=== PATIENT | female | born 1970 | race Caucasian/White ===

== ENCOUNTER 2020-10-22 10:07 | Inpatient (IN) ==
[2020-10-17 13:24] LABS: Appearance,Urine CLEAR (Clear); Bilirubin,Urine Negative (Negative); Color,Urine YELLOW; Culture Indicated,Urine No; Glucose,Urine (UA) Negative (Negative); Ketones,Urine Negative (Negative); Leukocyte Esterase,Urine Negative /ug (Negative); Nitrate,Urine Negative (Negative); Protein,Urine Negative (Negative); Specific Gravity,Urine 1.021 (1.000-1.035); Urine Blood Negative (Negative); Urobilinogen,Urine Negative
[2020-10-17 13:44] LABS: Basophils # (Auto) 0.06 K/mcL (0.00-0.20); Basophils % (Auto) 0.8 % (0.0-2.0); Eosinophils # (Auto) 0.27 K/mcL (0.00-0.70); Eosinophils % (Auto) 3.7 % (0.0-7.0); Hematocrit 40.9 % (36.0-48.0); Hemoglobin 12.8 g/dL (12.0-15.0); Lymphocytes # (Auto) 2.35 K/mcL (1.50-4.80); Lymphocytes % (Auto) 31.9 % (15.0-49.0); Mean Cell Volume 99.3 fL (80.0-100.0); Mean Corpuscular HGB Conc 31.3 g/dL (31.0-36.0); Mean Platelet Volume 9.7 fL (7.4-10.4); Monocytes # (Auto) 0.56 K/mcL (0.10-0.90); Monocytes % (Auto) 7.6 % (1.0-12.0); Platelet Count 171 K/mcL (140-440); RBC 4.12 M/mcL (4.00-5.20); Red Cell Distribution Width 15.8 % (11.5-14.5); WBC 7.4 K/mcL (4.5-11.0)
[2020-10-17 13:59] LABS: Blood Urea Nitrogen 22 mg/dL (6-20); Calcium 10.8 mg/dL (8.6-10.4); Carbon Dioxide 28 mmol/L (22-30); Chloride 108 mmol/L (96-108); Glomerular Filtration Rate 65; Glucose 108 mg/dL (70-105)
[2020-10-17 14:02] LABS: Estimated Average Glucose(eAG) 111 mg/dL; Hemoglobin A1C 5.5 % Hgb (4.0-6.0)
[2020-10-17 14:20] LABS: INR 0.9 (0.9-1.1); Partial Thromboplastin Time 28.7 sec (20.0-37.0); Prothrombin Time 12.8 sec (11.9-14.5)
[~2020-10-22 10:07] MED LIST: 0.9 % SODIUM CHLORIDE 9 ML, KETOROLAC 30 MG, ROPIVACAINE HCL/PF 49.5 ML, EPINEPHrine 0.... IJ SCH; ACETAMINOPHEN 500 MG TABLET PO SCH; CELECOXIB 200 MG CAPSULE PO SCH; PREGABALIN 75 MG CAPSULE PO SCH; ceFAZolin 2 GM in DEXTROSE 5% IN WATER 50 ML IV SCH; oxyCODONE 10 MG TAB.ER.12H PO SCH
[2020-10-22] MEDS ORDERED: SCOPOLAMINE 1 PATCH PATCH TOPICAL PRN (11:00)
[2020-10-22] MEDS: IPRATROPIUM/ALBUTEROL 3 ML AMPUL.NEB NEB PRN ×2 (15:05→15:13)
--- NOTE | 2020-10-22 15:26 | Discharge Plan ---
Discharge Instructions - TKA Patient Instructions Total Knee Protocol: For Total Knee: Start ROM MARCELINA with stationary bike or rocking chair. Work on gaining full extension of knee. Posterior dislocation precautions provided. Hip abductor strengthening and gait training instructions provided. Apply Cryocuff as instructed. Discharge Plan Patient/Caregiver Discharge Instructions Activity: ambulate only with your walker and as per physical therapy Diet: Regular Diet Prescriptions: New hydrocodone-acetaminophen 10-325 mg Tablet 1 - 2 tab PO Q4H PRN (Reason: Pain) Qty: 75 RF: 0 docusate sodium 100 mg capsule 100 mg PO BID Qty: 60 RF: 0 No Action multivitamin Tablet 1 tab PO QDAY RF: 0 metformin 500 mg Tablet 500 mg PO BIDCC RF: 0 atorvastatin [Lipitor] 20 mg Tablet 20 mg PO QHS RF: 0 cetirizine 10 mg Tablet 10 mg PO QDAY RF: 0 sertraline 100 mg Tablet 200 mg PO QDAY RF: 0 milk thistle 150 mg Capsule 300 mg PO QDAY RF: 0 metoclopramide HCl 5 mg Tablet 5 mg PO TIDP PRN (Reason: Nausea) RF: 0 losartan 25 mg Tablet 25 mg PO QDAY RF: 0 hydrochlorothiazide 12.5 mg Capsule 12.5 mg PO QAM RF: 0 omeprazole 20 mg Capsule,Delayed Release(Dr/Ec) 20 mg PO BIDAC RF: 0 enoxaparin [Lovenox] 150 mg/mL Syringe 150 mg SUBCUT DAILY RF: 0 Lactobacillus acidophilus Capsule 10 mg PO QPMCC RF: 0 albuterol sulfate [Ventolin HFA] 90 mcg/actuation Hfa Aerosol Inhaler 1 - 2 puff INHALATION Q4-6HP PRN (Reason: SOB) RF: 0 ketoconazole 2 % Cream 1 applic TOPICAL QDAY RF: 0 fluticasone propionate [Flonase Allergy Relief] 50 mcg/actuation [place],Suspension 2 spray INTRANASAL QDAY RF: 0 methocarbamol 500 mg Tablet 500 - 1,000 mg PO Q6HP PRN (Reason: MUSCLE SPASMS) RF: 0 acetaminophen 650 mg Tablet Extended Release 1,300 mg PO BID RF: 0 hydroxyzine HCl 25 mg Tablet 12.5 - 25 mg PO Q8HP PRN (Reason: Anxiety) RF: 0 ergocalciferol (vitamin D2) [Vitamin D2] 1,250 mcg (50,000 unit) Capsule 1,250 mcg PO SA@0900 RF: 0 pregabalin [Lyrica] 225 mg Capsule 225 mg PO BID RF: 0 Other Ambulatory Orders: CPM Discharge Order (ONCE) Location: None Selected Ordered By: Manuel Castle Physical Therapy DC - TKA (Routine) Location: None Selected Ordered By: Manuel Castle Toilet Riser Discharge Order (ONCE) Location: None Selected Ordered By: Manuel Castle Walker (ONCE) Location: None Selected Ordered By: Manuel Castle Follow Up Plan Follow up with: Manuel Castle PA-C [Physician Gasket Supervisor] - Patient Disposition: Home, Self-Care Prognosis: Good Rehab Potential: Good I certify that the patient requires SNF services: No Overall status at discharge: patient is progressing back to baseline Discharge Orders: Discharge Order (Routine); Ordered 10/23/20 Ordered By: Manuel Castle
[2020-10-22] MEDS ORDERED: SUCCINYLCHOLINE 20 MG/ML ML IV ONE (15:47)
[2020-10-22] MEDS ORDERED: PHENYLEPHRINE 10 MG/ML VIAL ONE (15:47)
[2020-10-22] MEDS ORDERED: ROCURONIUM 10 MG/ML ML IV ONE (15:47)
[2020-10-22] MEDS ORDERED: LIDOCAINE HCL/PF 100 MG/5 ML SYRINGE IV ONE (15:47)
[2020-10-22] MEDS ORDERED: ePHEDrine 50 MG/ML AMPUL IV ONE (15:47)
[2020-10-22] MEDS ORDERED: MIDAZOLAM 5 MG/5 ML VIAL ONE (15:47)
[2020-10-22] MEDS ORDERED: PROPOFOL 200 MG/20 ML VIAL IV ONE (15:47)
[2020-10-22] MEDS ORDERED: KETAMINE 100 MG/ML ML ONE (15:47)
[2020-10-22] MEDS ORDERED: DEXAMETHASONE 10 MG/ML VIAL ONE (15:47)
[2020-10-22] MEDS ORDERED: ONDANSETRON 4 MG/2 ML VIAL ONE (15:47)
[2020-10-22] MEDS ORDERED: GENTAMICIN SULFATE 800 MG/20 ML VIAL IR ONE (16:20)
[2020-10-22] MEDS ORDERED: ATROPINE SULFATE 0.4 MG/ML VIAL IV PRN (16:38)
[2020-10-22] MEDS ORDERED: MEPERIDINE 25 MG/ML SYRINGE IV PRN (16:38)
[2020-10-22] MEDS ORDERED: FLUMAZENIL 0.1 MG/ML ML IV PRN (16:38)
[2020-10-22] MEDS ORDERED: diphenhydrAMINE 50 MG/ML VIAL IV PRN (16:38)
[2020-10-22] MEDS ORDERED: METOPROLOL TARTRATE 5 MG/5 ML VIAL IV PRN (16:38)
[2020-10-22] MEDS ORDERED: ePHEDrine 50 MG/ML AMPUL IV PRN (16:38)
[2020-10-22] MEDS ORDERED: PROMETHAZINE 25 MG/ML VIAL IV PRN (16:38)
[2020-10-22] MEDS ORDERED: PROMETHAZINE 25 MG/ML VIAL IM PRN (16:38)
[2020-10-22] MEDS ORDERED: ONDANSETRON 4 MG/2 ML VIAL IV PRN ×2 (16:38→16:59)
[2020-10-22] MEDS ORDERED: MEPERIDINE 50 MG/ML INJECTION IM PRN (16:38)
[2020-10-22] MEDS ORDERED: IPRATROPIUM/ALBUTEROL 3 ML AMPUL.NEB NEB PRN (16:38)
[2020-10-22] MEDS ORDERED: NALOXONE HCL 0.4 MG/ML VIAL IV PRN (16:38)
[2020-10-22] MEDS ORDERED: fentaNYL 100 MCG/2 ML VIAL IV PRN (16:38)
[2020-10-22] MEDS ORDERED: METHOCARBAMOL 1,000 MG/10 ML VIAL IV PRN (16:38)
[2020-10-22] MEDS ORDERED: HYDROmorphone 0.5 MG/0.5 ML SYRINGE IV PRN (16:38)
[2020-10-22] MEDS ORDERED: LACTATED RINGERS 1,000 ML IV SCH (16:45)
[2020-10-22] MEDS ORDERED: BISACODYL 10 MG SUPP.RECT PR PRN (16:59)
[2020-10-22] MEDS ORDERED: TRANEXAMIC ACID 1,000 MG/10 ML VIAL IV SCH (16:59)
[2020-10-22] MEDS ORDERED: MAGNESIUM HYDROXIDE 30 ML ORAL.SUSP PO PRN (16:59)
[2020-10-22] MEDS ORDERED: ACETAMINOPHEN 325 MG TABLET PO PRN (16:59)
[2020-10-22] MEDS ORDERED: POLYETHYLENE GLYCOL 3350 17 GM PACKET PO PRN (16:59)
[2020-10-22] MEDS ORDERED: FLEETS ADULT ENEMA PR PRN (16:59)
--- NOTE | 2020-10-22 16:59 | Brief Operative Note ---
Brief Operative Note Date of procedure: 10/22/20 Pre-op diagnosis: left knee pcl rupture and prepatellar hematoma and maltracking Post-op diagnosis: same Procedure: left knee revision 2 components and debridement prepatellar bursa Grafts/Implants: Yes Anesthesia: GETA Complications: none Surgeon: Wai Barry Astrochemist: Manuel Castle Estimated blood loss (cc): 20 Tourniquet Time (Minutes): 32 Specimens Removed/Pathology: other Condition: stable Disposition: PACU
[2020-10-22] MEDS ORDERED: LACTOBACILLUS 1 CAPSULE PO SCH (17:30)
--- NOTE | 2020-10-22 17:46 | XRay Report ---
CLINICAL INFORMATION: Post-Op Total Knee COMPARISON: None. FINDINGS: Total knee prostheses revision is anatomically aligned. No osseous abnormality. Soft tissue swelling gas seen as expected IMPRESSION: Total knee prostheses revision is anatomically aligned. Interpreted and Authenticated by: Aleksey Mathews 10/22/20
[2020-10-22] MEDS: 0.45 % SODIUM CHLORIDE 1,000 ML IV SCH (18:00)
[2020-10-22] MEDS: KETOROLAC 15 MG/ML VIAL IV SCH (18:18)
[2020-10-22] MEDS ORDERED: OMEPRAZOLE 20 MG CAPSULE PO SCH (18:48)
[2020-10-22] MEDS: PREGABALIN 75 MG CAPSULE PO SCH ×2 (18:57→20:28)
[2020-10-22] MEDS: metFORMIN 500 MG TABLET PO SCH (18:57)
[2020-10-22] MEDS ORDERED: OMEPRAZOLE 20 MG CAPSULE PO ONE (19:00)
[2020-10-22] MEDS: BENZOCAINE/MENTHOL 1 LOZENGE PO PRN ×2 (19:18→22:49)
[2020-10-22] MEDS: HYDROcodone/APAP 10/325MG TABLET PO PRN ×2 (19:20→20:20)
[2020-10-22] MEDS: DOCUSATE SODIUM 100 MG CAPSULE PO SCH (20:27)
[2020-10-22] MEDS: METHOCARBAMOL 500 MG TABLET PO PRN (20:27)
[2020-10-22] MEDS: ASPIRIN 325 MG ENTERIC COATED TABLET PO SCH (20:27)
[2020-10-22] MEDS ORDERED: ACETAMINOPHEN 1300 MG PO SCH (21:00)
[2020-10-22] MEDS ORDERED: ATORVASTATIN 20 MG TABLET PO SCH (21:00)
[2020-10-22] MEDS ORDERED: TEMAZEPAM 15 MG CAPSULE PO PRN (21:00)
[2020-10-22] MEDS ORDERED: SENNOSIDES 1 TABLET PO SCH (21:00)
[2020-10-22] MEDS: 0.9 % SODIUM CHLORIDE 10 ML SYRINGE IV SCH (22:24)
[2020-10-22] MEDS: HYDROmorphone 1 MG/ML SYRINGE IV PRN (22:29)
[2020-10-22] MEDS: ceFAZolin 1 GM VIAL IV SCH (22:48)
[2020-10-23] MEDS: KETOROLAC 15 MG/ML VIAL IV SCH ×2 (00:20→05:37)
[2020-10-23] MEDS: HYDROcodone/APAP 10/325MG TABLET PO PRN ×3 (00:21→09:26)
[2020-10-23] MEDS: ALBUTEROL SULFATE 200 PUFF INHALER INH PRN ×2 (00:35→04:49)
[2020-10-23] MEDS: HYDROmorphone 1 MG/ML SYRINGE IV PRN (01:31)
[2020-10-23] MEDS: METHOCARBAMOL 500 MG TABLET PO PRN (02:19)
[2020-10-23] MEDS: 0.45 % SODIUM CHLORIDE 1,000 ML IV SCH (04:20)
[2020-10-23] MEDS: 0.9 % SODIUM CHLORIDE 10 ML SYRINGE IV SCH (05:24)
[2020-10-23] MEDS: ceFAZolin 1 GM VIAL IV SCH (07:05)
[2020-10-23] MEDS ORDERED: OMEPRAZOLE 20 MG CAPSULE PO SCH (07:30)
--- NOTE | 2020-10-23 07:36 | Orthopedic Progress Note ---
SUBJECTIVE Subjective Patient information: Note initiated : 10/23/20 at 7:35 am Service Date, if different from initiated Date: [] Patient: Gwen Herrera 49 y/o F admitted on 10/22/20 for Left Total Knee Revision-Poly Liner Exchange,. Chief Complaint: []Pt is stable this morning on post operative day without any significant concerns or complaints. Patients vital signs have remained stable. Patients dressing is dry and is grossly intact from a neurovascular and motor standpoint. Patients 10 point ROS is otherwise negative. Constitutional Vitals: Vital Signs Temp Pulse Resp BP Pulse Ox 97.9 F 74 14 110/69 93 10/23/20 04:08 10/23/20 04:08 10/23/20 04:08 10/23/20 04:08 10/23/20 04:08 Period Temp Pulse Resp BP Sys/Simons Pulse Ox Last 24 Hr 97.8 F-98.9 F 73-95 11-20 107-125/58-81 85-95 Intake and Output 10/22/20 10/23/20 10/23/20 21:59 05:59 13:59 Intake Total 1668 400 2 Output Total 150 300 Balance 1518 100 2 Weight 257 lb 8 oz Intake & Output: Intake & Output 10/22/20 10/23/20 10/23/20 21:59 05:59 13:59 Intake Total 1668 400 2 Output Total 150 300 Balance 1518 100 2 Weight 257 lb 8 oz Intake: IV 48 2 Lactated Ringers 1,000 ml @ 20 0 mls/hr IV .Q24H [facility] Rx#: [id number] Ancef 2 gm In Dextrose 5% in 48 2 Water 50 ml @ 100 mls/hr IV PREOP [facility] Rx#:[id number] Oral 400 IV - Manual Only 1620 Output: Void Amount 100 300 Estimated Blood Loss 50 Other: Urine Appearance Clear Clear Urine Color Bright Yellow Bright Yellow # Voids 1 Extremities Exam Extremities exam: Present normal capillary refill, normal inspection, Foot pink and warm and neurovascular intact OBJ DATA Labs CBC & Chem 7: 10/23/20 05:26 10/17/20 11:28 Meds: Medications Acetaminophen (Tylenol) 650 mg PO Q6HP PRN; Protocol PRN Reason: Per Pain Protocol/Fever > 101 Hydrocodone Bitart/Acetaminophen ([place] 10/325mg) 1 - 2 tab PO Q4HP PRN; P rotocol PRN Reason: Per Pain Protocol Last Admin: 10/23/20 04:19 Dose: 2 tab Documented by: Albuterol Sulfate (Ventolin) 1 puff INH Q4-6HP PRN PRN Reason: Shortness Of Breath Last Admin: 10/23/20 04:49 Dose: 1 puff Documented by: Aspirin (Ecotrin) 325 mg PO BID [facility] Last Admin: 10/22/20 20:27 Dose: 325 mg Documented by: Atorvastatin Calcium (Lipitor) 20 mg PO QHS [facility] Last Admin: 10/22/20 20:28 Dose: 20 mg Documented by: Bisacodyl (Dulcolax) 10 mg VA Q2-3DAYS PRN PRN Reason: Constipation Docusate Sodium (Colace) 100 mg PO BID [facility] Last Admin: 10/22/20 20:27 Dose: 100 mg Documented by: Ergocalciferol (Drisdol) 50,000 unit PO SA@0900 [facility] Fluticasone Propionate (Flonase) 2 spray NS QDAY [facility] Hydrochlorothiazide (Oretic) 12.5 mg PO QAM [facility] Hydromorphone HCl (Dilaudid) 0 mg IV Q2HP PRN; Protocol PRN Reason: Per Pain Protocol Last Admin: 10/23/20 01:31 Dose: 0.5 mg Documented by: Sodium Chloride (Sodium Chloride 0.45%) 1,000 mls @ 100 mls/hr IV .Q10H [facility] Last Admin: 10/23/20 04:20 Dose: Not Given Documented by: Iron Carb/Multivit/Randall/Folic Acid (Multivitamin W/Minerals) 1 tab PO DAILY [facility] Ketoconazole (Nizoral 2% Top Crm) 1 dose TOPICAL QDAY [facility] Ketorolac Tromethamine (Toradol) 15 mg IV Q6 [facility] Stop: 10/24/20 12:01 Last Admin: 10/23/20 05:37 Dose: 15 mg Documented by: Lactobacillus Rhamnosus (Culturelle) 1 cap PO QPMCC [facility] Last Admin: 10/22/20 18:57 Dose: 1 cap Documented by: Losartan Potassium (Cozaar) 25 mg PO QDAY [facility] Magnesium Hydroxide (Milk Of Magnesia) 30 ml PO BIDP PRN PRN Reason: Constipation Metformin HCl (Glucophage) 500 mg PO BIDCC [facility] Last Admin: 10/22/20 18:57 Dose: 500 mg Documented by: Methocarbamol (Robaxin) 500 mg PO Q6HP PRN PRN Reason: MUSCLE SPASMS Last Admin: 10/23/20 02:19 Dose: 500 mg Documented by: Omeprazole (Prilosec) 20 mg PO BIDAC [facility] Last Admin: 10/23/20 07:04 Dose: 20 mg Documented by: Ondansetron HCl (Zofran) 4 mg IV Q4HP PRN PRN Reason: Nausea And Vomiting Polyethylene Glycol (Miralax) 17 gm PO DAILYP PRN PRN Reason: Constipation Pregabalin (Lyrica) 225 mg PO BID [facility] Last Admin: 10/22/20 20:28 Dose: Not Given Documented by: Senna (Senokot) 2 tab PO HS [facility] Last Admin: 10/22/20 20:27 Dose: 2 tab Documented by: Sertraline HCl (Zoloft) 200 mg PO QDAY [facility] Sodium Biphosphate/Sodium Phosphate (Fleets Adult) 1 dose VA Q3-4DAYS PRN PRN Reason: Constipation Sodium Chloride (Saline Flush) 10 ml IV Q8 [facility] Last Admin: 10/23/20 05:24 Dose: Not Given Documented by: Temazepam (Restoril) 15 mg PO HSP PRN PRN Reason: Insomnia Last Admin: 10/22/20 22:49 Dose: 15 mg Documented by: Throat Lozenges (Cepacol) 1 lozenge PO PRN PRN PRN Reason: Sore Throat Last Admin: 10/22/20 22:49 Dose: 1 lozenge Documented by: A/P Narrative A/P Narrative: The patient has been educated regarding dressing care, Physical Therapy recommendations, home exercises, restrictions, and follow up appointments. The patient has had all necessary DME prescribed. The patient has remained relatively stable during their hospital course. Pt has progressed quicker than expected and meets the criteria for early discharge per Physicial Therapy and our evaluation. Time Spent With Patient Time: Total time spent is greater than 50% in coordination of care (as documented) at patient's floor/unit and/or counseling patient: Total time spent with greater than 50% in coordination of care (as documented) at patient's floor/unit and/or counseling patient:: less than 15 minutes
[2020-10-23] MEDS: metFORMIN 500 MG TABLET PO SCH (07:46)
[2020-10-23] MEDS: ASPIRIN 325 MG ENTERIC COATED TABLET PO SCH (08:22)
[2020-10-23] MEDS: DOCUSATE SODIUM 100 MG CAPSULE PO SCH (08:22)
[2020-10-23] MEDS: PREGABALIN 75 MG CAPSULE PO SCH (08:23)
[2020-10-23] MEDS ORDERED: FLUTICASONE PROPIONATE SPRAY.NAS NS SCH (09:00)
[2020-10-23] MEDS ORDERED: LOSARTAN 25 MG TABLET PO SCH (09:00)
[2020-10-23] MEDS ORDERED: HYDROCHLOROTHIAZIDE 12.5 MG CAPSULE PO SCH (09:00)
[2020-10-23] MEDS ORDERED: KETOCONAZOLE 2% TOP CRM 15GM TUBE TOPICAL SCH (09:00)
[2020-10-23] MEDS ORDERED: MILK THISTLE 300 MG PO SCH (09:00)
[2020-10-23] MEDS ORDERED: MULTIVIT,THER IRON,CA,FA & MIN 1 TABLET PO SCH (09:00)
[2020-10-23] MEDS ORDERED: SERTRALINE 100 MG TABLET PO SCH (09:00)
--- NOTE | 2020-10-23 09:07 | Operative Note ---
DATE OF OPERATION: 10/22/2020 PREOPERATIVE DIAGNOSIS: Left knee prepatellar bursitis, PCL rupture, ligament instability, as well as maltracking of the patella. POSTOPERATIVE DIAGNOSIS: Left knee prepatellar bursitis, PCL rupture, ligament instability, as well as maltracking of the patella. PROCEDURE: Left knee debridement of the prepatellar bursa of a hematoma secondary to trauma, revision of the poly liner, the tibial baseplate from a size 11 to a size 14. SURGEON: Wai Barry M.D. DESCRIPTION OF PROCEDURE: Patella was removed and repositioned with a 35 mm patella, making a lateral chamfer cut to assist with tracking of the patella and overstuffing of the anterior compartment. This was done using a reciprocating saw. We then removed the old component. We then redrilled the holes and measured the patient to be 21 mm total thickness with the new poly. The patient tolerated this well. We cemented into place the patella, placed a new poly liner and rechecked the knee. It was very stable. Once the cement was dry we thoroughly irrigated using 4 liters of irrigation through the joint and prepatellar bursa region and used antibiotic-impregnated water with chlorhexidine. We thoroughly washed the wound and prepatellar bursa. Once this was done, we closed the midvastus approach with #1 Stratafix x2, closed the skin with Stratafix and adhesive closure. We sent tissue for the pathologist, the prepatellar bursa and prepatellar pouch. The prepatellar bursa was a hematoma with necrotic tissue as if a wound or bruise had occurred. Tourniquet was 250 pounds of pressure for 32 minutes. Blood loss was approximately 20 mL. Implants placed were a 35 mm patellar button as well as a 14 mm poly for a size 3 tibial baseplate, all of which improved the symptoms and appeared to align the leg perfectly. A sterile bandage was applied. RBH:shaka Job ID: [id number] Doc ID: [id number] Wai Barry MD
[2020-10-23] MEDS ORDERED: FLU VACC QS2020-21(6MOS UP)/PF 60 MCG/0.5 ML SYRINGE IM ONE (10:00)
--- NOTE | 2020-10-24 13:40 | Surgical Pathology Report ---
Histology Microscopic Diagnosis Specimen A- SOFT TISSUE, PREPATELLAR BURSA, EXCISION: --- PREDOMINATELY ORGANIZED FIBRIN WITH RARE CHRONIC INFLAMMATORY CELLS. --- NO SIGNIFICANT NEUTROPHILIC INFLAMMATION IDENTIFIED (LESS THAN 1 NEUTROPHIL/hpf). IOC Diagnosis FROZEN SECTION DIAGNOSIS (Performed at [facility], [place], [place]) FSA - SOFT TISSUE, PREPATELLAR BURSA, EXCISION: --- LESS THAN ONE NEUTROPHIL/hpf. Procedural Impression Left knee retained hardware. Gross Description Received fresh for frozen section consultation labeled prepatellar bursa, are two yellow-gupta soft tissue fragments, 4.5 x 2.2 x 0.6 cm in aggregate. The specimen is sectioned to reveal softened variegated gupta-pink to gupta-brown soft tissue. Harvest Crew Supervisor sections of approximately 70% of the specimen are submitted for frozen section consultation and resubmitted as FSA. Microscopic Diagnosis Specimen B- SOFT TISSUE, PATELLAR POUCH, EXCISION: --- FIBROTIC SYNOVIAL TISSUE WITH ASSOCIATED CHRONIC INFLAMMATION. --- NO SIGNIFICANT NEUTROPHILIC INFLAMMATION IDENTIFIED (LESS THAN 1 NEUTROPHIL/hpf). (DMT:sln) IOC Diagnosis FSB - SOFT TISSUE, PATELLAR POUCH, EXCISION: --- LESS THAN ONE NEUTROPHIL/hpf. (DMT:sln) Gross Description Received fresh for frozen section consultation labeled patellar pouch, is a 6.9 x 1.2 x 0.6 cm gupta-white firm soft tissue fragment. The fragment is sectioned and approximately 70% of the specimen is submitted for frozen section consultation and resubmitted as FSB. (DMT:sln) Electronically Signed Poncho Strauss MD, FCAP Electronically Signed 10/24/2020 13:39
[2020-10-27] MEDS ORDERED: ERGOCALCIFEROL (VITAMIN D2) 50,000 UNIT CAPSULE PO SCH (09:00)
== END 2020-10-23 11:45 | disposition home or self-care (01) | DRG 464 ==
LOC: MEDSUR 10:07
PROVIDERS: ADMIT Orthopaedic Surgery; ATTEND Orthopaedic Surgery

== ENCOUNTER 2024-02-01 10:25 | Inpatient (IN) ==
[2024-02-01] MEDS ORDERED: IOPAMIDOL 100 ML BOTTLE IV ONE (10:26)
[2024-02-01 11:28] LABS: Basophils # (Auto) 0.01 K/mcL (0.00-0.30); Basophils % (Auto) 0.2 % (0.0-2.0); Eosinophils # (Auto) 0.14 K/mcL (0.00-0.70); Eosinophils % (Auto) 2.4 % (0.0-7.0); Hemoglobin 10.6 g/dL (11.2-15.7); Lymphocytes # (Auto) 1.66 K/mcL (1.50-4.80); Mean Cell Volume 96.4 fL (80.0-100.0); Mean Corpuscular HGB Conc 30.3 g/dL (31.0-36.0); Mean Platelet Volume 8.7 fL (8.8-12.5); Monocytes # (Auto) 0.58 K/mcL (0.10-0.90); Monocytes % (Auto) 10.1 % (1.0-12.0); Platelet Count 121 K/mcL (140-440); RBC 3.63 M/mcL (3.59-5.38); Red Cell Distribution Width 16.8 % (11.5-14.5); WBC 5.7 K/mcL (4.5-11.0)
[2024-02-01 11:43] LABS: ALT/SGPT 62 U/L (<40); AST/SGOT 48 U/L (<32); Albumin 3.7 gm/dL (3.2-5.2); Albumin/Globulin Ratio 1.3 (1.0-2.3); Alkaline Phosphatase 163 U/L (39-117); Bilirubin,Total 0.3 mg/dL (0.1-1.0); Blood Urea Nitrogen 14 mg/dL (6-20); Calcium 9.8 mg/dL (8.6-10.4); Carbon Dioxide 30 mmol/L (22-30); Chloride 98 mmol/L (96-108); Globulin 2.8 gm/dL (2.2-3.7); Glomerular Filtration Rate 84; Glucose 127 mg/dL (70-105)
[2024-02-01] MEDS: ACETAMINOPHEN 325 MG TABLET PO ONE (11:51)
[2024-02-01 11:52] LABS: Prothrombin Time 13.5 sec (11.9-14.5)
[2024-02-01] MEDS: methylPREDNISolone SOD SUCC 125 MG/2 ML VIAL IV ONE (12:39)
[2024-02-01] MEDS: IPRATROPIUM/ALBUTEROL 3 ML AMPUL.NEB NEB ONE ×3 (12:50→19:52)
[2024-02-01] MEDS: KETOROLAC 30 MG/ML VIAL IV ONE (14:00)
[2024-02-01] MEDS: OSELTAMIVIR PHOSPHATE 75 MG CAPSULE PO ONE (14:00)
[2024-02-01] MEDS ORDERED: ALBUTEROL SULFATE 2.5 MG/3 ML NEBULIZER NEB PRN (18:54)
[2024-02-01] MEDS ORDERED: SENNOSIDES 1 TABLET PO PRN (18:54)
[2024-02-01] MEDS ORDERED: LACTULOSE 20 GM/30 ML ORAL.SOL PO PRN (18:54)
[2024-02-01] MEDS ORDERED: DEXTROSE 31 GM ORAL.SUSP PO PRN (18:54)
[2024-02-01] MEDS ORDERED: ACETAMINOPHEN 325 MG TABLET PO PRN (18:54)
[2024-02-01] MEDS ORDERED: DEXTROSE 50% 50 ML VIAL IV PRN (18:54)
[2024-02-01] MEDS ORDERED: NICOTINE POLACRILEX 2 MG GUM CHEW/PARK PRN (19:21)
[2024-02-01] MEDS: IPRATROPIUM/ALBUTEROL 3 ML AMPUL.NEB NEB SCH (19:48)
[2024-02-01 19:51] LABS: ABG Methemoglobin 0.1 % (0.4-1.5); VBG Base Excess 2 (-2-3); VBG HCO3 28.1 mmol/L (24.0-28.0); VBG PCO2 49.3 mmHg (41.0-51.0); VBG PH 7.37 U (7.32-7.42); VBG PO2 117.3 mmHg (25.0-40.0); VBG Total CO2 29.6 mmol/L (25.0-29.0)
[2024-02-01] MEDS: OSELTAMIVIR PHOSPHATE 75 MG CAPSULE PO SCH (20:43)
[2024-02-01 20:44] LABS: Appearance,Urine Clear (Clear); Bacteria,Urine 0 /hpf (0); Bilirubin,Urine Negative (Negative); Color,Urine Yellow; Culture Indicated,Urine No; Glucose,Urine (UA) 500 mg/dL (Negative); Ketones,Urine Negative (Negative); Leukocyte Esterase,Urine Negative /uL (Negative); Nitrate,Urine Negative (Negative); PH,Urine 5.5 (5.0-9.0); Protein,Urine Negative (Negative); Specific Gravity,Urine 1.015 (1.000-1.035); Urine Blood Trace-intact ery/mcL (Negative); Urine RBC 2 /hpf (0-3); Urine Squamous Epithelial Cell 3 /hpf (0-4); Urine WBC 0 /hpf (0-4); Urobilinogen,Urine Normal
[2024-02-01] MEDS: HYDROcodone/APAP 5/325MG TABLET PO PRN (20:44)
[2024-02-01] MEDS: NICOTINE 21 MG PATCH TOPICAL SCH (20:45)
[2024-02-01] MEDS: INSULIN LISPRO 1 UNIT/0.01 ML UNIT SQ SCH (20:58)
[2024-02-01] MEDS: DOCUSATE SODIUM 100 MG CAPSULE PO SCH (20:59)
[2024-02-01] MEDS: ONDANSETRON 4 MG/2 ML VIAL IV PRN (21:06)
[2024-02-01] MEDS: ENOXAPARIN 150 MG/ML SYRINGE SQ SCH (21:07)
[2024-02-01] MEDS: ACETAMINOPHEN 500 MG TABLET PO SCH (21:07)
[2024-02-01] MEDS: 0.9 % SODIUM CHLORIDE 10 ML SYRINGE IV SCH (21:08)
[2024-02-02 05:22] LABS: Basophils # (Auto) 0.01 K/mcL (0.00-0.30); Basophils % (Auto) 0.2 % (0.0-2.0); Eosinophils # (Auto) 0 K/mcL (0.00-0.70); Eosinophils % (Auto) 0 % (0.0-7.0); Hematocrit 35.6 % (34.1-44.9); Hemoglobin 10.6 g/dL (11.2-15.7); Lymphocytes % (Auto) 12.3 % (15.5-49.0); Mean Corpuscular HGB Conc 29.8 g/dL (31.0-36.0); Mean Platelet Volume 8.4 fL (8.8-12.5); Monocytes # (Auto) 0.51 K/mcL (0.10-0.90); Monocytes % (Auto) 8.9 % (1.0-12.0); Neutrophils % (Auto) 78.2 % (38.0-78.0); Platelet Count 121 K/mcL (140-440); RBC 3.67 M/mcL (3.59-5.38); Red Cell Distribution Width 16.5 % (11.5-14.5); WBC 5.7 K/mcL (4.5-11.0)
[2024-02-02 05:31] LABS: ALT/SGPT 50 U/L (<40); AST/SGOT 36 U/L (<32); Albumin 3.6 gm/dL (3.2-5.2); Albumin/Globulin Ratio 1.2 (1.0-2.3); Alkaline Phosphatase 149 U/L (39-117); Bilirubin,Direct < 0.2 mg/dL (0-0.3); Bilirubin,Total < 0.2 mg/dL (0.1-1.0); Blood Urea Nitrogen 17 mg/dL (6-20); Calcium 10.4 mg/dL (8.6-10.4); Carbon Dioxide 29 mmol/L (22-30); Chloride 101 mmol/L (96-108); Globulin 2.9 gm/dL (2.2-3.7); Glomerular Filtration Rate 72; Glucose 187 mg/dL (70-105); Lactate Dehydrogenase 133 U/L (135-225); Phosphorous 2.8 mg/dL (2.5-4.5); Triglycerides 184 mg/dL (<150); Uric Acid 6.4 mg/dL (2.5-8.0)
[2024-02-02] MEDS ORDERED: DICYCLOMINE 20 MG TABLET PO PRN (07:24)
[2024-02-02] MEDS ORDERED: tiZANidine 4 MG TABLET PO PRN (07:33)
[2024-02-02] MEDS: IBUPROFEN 200 MG TABLET PO PRN (08:32)
[2024-02-02] MEDS: OMEPRAZOLE 20 MG CAPSULE PO SCH (08:32)
[2024-02-02] MEDS: predniSONE 20 MG TABLET PO SCH (08:32)
[2024-02-02] MEDS: SERTRALINE 100 MG TABLET PO SCH (08:32)
[2024-02-02] MEDS: GABAPENTIN 100 MG CAPSULE PO SCH (08:32)
[2024-02-02] MEDS: hydrOXYzine 25 MG TABLET PO PRN (08:32)
[2024-02-02] MEDS ORDERED: methylPREDNISolone SOD SUCC 125 MG/2 ML VIAL IV SCH (09:00)
[2024-02-02] MEDS: FLUTICASONE PROPIONATE SPRAY.NAS NS SCH (09:47)
[2024-02-02] MEDS: HYDROCHLOROTHIAZIDE 12.5 MG CAPSULE PO SCH (14:57)
[2024-02-02] MEDS: ATORVASTATIN 40 MG TABLET PO SCH (20:29)
[2024-02-03 09:19] LABS: ALT/SGPT 51 U/L (<40); AST/SGOT 34 U/L (<32); Albumin 3.7 gm/dL (3.2-5.2); Albumin/Globulin Ratio 1.2 (1.0-2.3); Alkaline Phosphatase 137 U/L (39-117); Bilirubin,Direct < 0.2 mg/dL (0-0.3); Bilirubin,Total < 0.2 mg/dL (0.1-1.0); Blood Urea Nitrogen 17 mg/dL (6-20); Calcium 10.7 mg/dL (8.6-10.4); Carbon Dioxide 29 mmol/L (22-30); Chloride 102 mmol/L (96-108); Globulin 3.1 gm/dL (2.2-3.7); Glomerular Filtration Rate 84; Glucose 137 mg/dL (70-105); Lactate Dehydrogenase 134 U/L (135-225); Phosphorous 2.3 mg/dL (2.5-4.5); Triglycerides 236 mg/dL (<150); Uric Acid 5.7 mg/dL (2.5-8.0)
[2024-02-03 09:43] LABS: Basophils # (Auto) 0.02 K/mcL (0.00-0.30); Basophils % (Auto) 0.4 % (0.0-2.0); Eosinophils # (Auto) 0.04 K/mcL (0.00-0.70); Eosinophils % (Auto) 0.7 % (0.0-7.0); Hematocrit 36.2 % (34.1-44.9); Hemoglobin 10.8 g/dL (11.2-15.7); Lymphocytes # (Auto) 1.86 K/mcL (1.50-4.80); Lymphocytes % (Auto) 33.2 % (15.5-49.0); Mean Cell Volume 97.6 fL (80.0-100.0); Mean Corpuscular HGB Conc 29.8 g/dL (31.0-36.0); Mean Platelet Volume 8.5 fL (8.8-12.5); Monocytes # (Auto) 0.38 K/mcL (0.10-0.90); Monocytes % (Auto) 6.8 % (1.0-12.0); Neutrophils % (Auto) 58.2 % (38.0-78.0); Platelet Count 135 K/mcL (140-440); RBC 3.71 M/mcL (3.59-5.38); Red Cell Distribution Width 17.2 % (11.5-14.5); WBC 5.6 K/mcL (4.5-11.0)
[2024-02-03] MEDS: PNEUMOCOCCAL 23-VAL P-SAC VAC 0.5 ML SYRINGE IM ONE (13:05)
== END 2024-02-03 13:23 | disposition home or self-care (01) | DRG 202 ==
LOC: ED 10:25 → ICU 18:51
PROVIDERS: ADMIT Internal Medicine; ATTEND Internal Medicine